=== PATIENT | male | born 1950 | race Caucasian/White ===

== ENCOUNTER → 2017-01-29 | Outpatient (CLI) | payer MEDICARE, BC ==
--- NOTE | ~2017-01-29 | US6 ---
[facility] A Service of [facility] RADIOLOGY TEXT RESULTS PATIENT: TOM BAHENA LOCATION: [facility] : 50 UNIT #: [id number] AGE: [address]: YARON BYNUM MD SEX: M ORDER DR: [id number] [place], [place] [address] [id number] MR#: [id number] #: [id number] NAME: TOM BAHENA : 1950 SEX: M STUDY DATE/TIME: 01/29/2017 9:25 UNIT: CGUS ROOM: STUDY DESCRIPTION: US Abdominal Limited Attending Physician: Yaron Bynum M.D. Referring Physician: Yaron Bynum M.D. Ordering Physician: Yaron Bynum M.D. Primary Care Physician: Yaron Bynum M.D. MEDICAL IMAGING REPORT This report is preliminary unless electronic signature is present EXAM Right upper quadrant abdominal ultrasound DATE 01/29/2017 HISTORY Abnormal elevated liver function tests at recent appointment 1.5 weeks ago. COMPARISON None. FINDINGS The pancreas has normal sonographic appearance. The liver demonstrates normal echotexture without focal or suspicious abnormality. Liver size is within normal limits, 14.3 cm. Portal vein appears patent. No focal liver lesion is seen. Right kidney measures 13.2 cm in length without focal cortical lesion, shadowing stone or hydronephrosis. The gallbladder is free of shadowing stone, sludge, wall thickening or pericholecystic fluid. Common bile duct caliber is normal, 4 mm. No intrahepatic biliary ductal dilation is seen. No ascites is evident. The pancreas is partially obscured by bowel gas but the visualized pancreas appears normal. IMPRESSION 1. Normal right upper quadrant abdominal ultrasound. Dictated by... Janeen Mijares M.D. THIS IS AN ELECTRONICALLY VERIFIED REPORT [facility] A Service of [facility] RADIOLOGY TEXT RESULTS PATIENT: TOM BAHENA LOCATION: [facility] : 50 UNIT #: [id number] AGE: [address]: YARON BYNUM MD SEX: M ORDER DR: Janeen Mijares M.D. at 01/30/2017 7:11 AM CHKIA/alma TD: 01/29/2017 20:48 JOB #: [id number] MEDICAL IMAGING REPORT Page 1 of 1 COPY
== END | disposition home or self-care (01) ==
LOC: CGUS 08:36
DX: R79.89 Other specified abnormal findings of blood chemistry (principal)
CPT/HCPCS: 76705